=== PATIENT | male | born 1985 | race Caucasian/White ===

== ENCOUNTER 2017-10-23 17:10 | Emergency (ER) | payer OTHER ==
[2017-10-23 19:16] LABS: KETONE, URINE AUTO RFX NEGATIVE (NEGATIVE); MUCUS, URINE RFX SMALL (NEGATIVE); NITRITE, URINE AUTO RFX NEGATIVE (NEGATIVE); RBC, URINE AUTO RFX 58 /HPF (0-3); SPECIFIC GRAVITY UR AUTO RFX 1.027 (1.002-1.035); SQUAM EPITHELIAL CELL UR AURFX 0 /HPF (0-6)
[2017-10-23 19:20] LABS: LEUKOCYTE ESTERASE UR AUTO RFX 1+ (NEGATIVE); WBC, URINE AUTO RFX 112 /HPF (0-3)
[2017-10-23 21:38] LABS: CHLAMYDIA DNA AMPLIFICATION POSITIVE (NEGATIVE); GC DNA AMPLIFICATION NEGATIVE (NEGATIVE)
== END 2017-10-23 19:58 | disposition home or self-care (01) ==
LOC: M ED 17:10
DX: N41.0 Acute prostatitis (principal)
CPT/HCPCS: 76870